=== PATIENT | male | born 1935 | race Caucasian/White ===

== ENCOUNTER 2018-09-25 14:43 | Inpatient (IN) | payer OTHER ==
[2018-09-25 15:14] VITALS: BMI 32.3
--- NOTE | 2018-09-25 17:28 | PDOC ---
History of Present Illness - General Chief Complaint: Syncope/Near Syncope Stated Complaint: FALL History Source: Patient Exam Limitations: No Limitations - History of Present Illness Initial Comments: 09/25/18 17:23 83-year-old male history of hypertension hyperlipidemia previous stroke here today complaining of a syncopal event. Patient states that he was going to his assisted living for intake today had just stood up after signing intake papers when he subsequently fainted fell backward hitting head. Is uncertain what happened exactly. Denies any precipitating chest pain or palpitations has been feeling lightheaded with standing frequently over the last few weeks. Denies vertigo like sensation no focal weakness no changed her speech is currently at his baseline patient does take a baby aspirin daily Medications include aspirin 81, metformin 500 mg daily, Toprol 50 mg daily, Lexapro 5 mg started 1 week ago, simvastatin 40 mg daily, PCP Dr. Luna [phone] in [place]. NIH Stroke Scale - Last Known Well Date/Time & Onset Date Last Known Well: 09/25/18 Time Last Known Well: 14:00 - Initial Evaluation Level of consciousness: Alert Ask patient the month and their age: Answers both correctly Ask patient to open & close eyes; make fist and let go: Obeys both correctly Best gaze (horizontal eye movement): Normal Visual field testing: No visual field loss Facial paresis (Show teeth/raise eyebrows/close eyes tight): Normal symmetrical movement Motor Function: Left Arm: Normal Motor Function: Right Arm: Normal (extends arm 90 (or 45) degrees for 10 seconds without drift Motor Function: Left Leg: Normal (extends leg 30 degrees for 5 seconds without drift) Motor Function: Right Leg: Drift (old) Limb Ataxia: No ataxia Sensory(Use pinprick test arms,legs,trunk,face/side to side): Normal Best language (Describe picture, name items, read sentences): No Aphasia Dysarthria (read several words): Normal articulation Extinction and Inattention: No abnormality - Total Score NIH Stroke Scale Score: 1 Past History - Past Medical History Allergies/Adverse Reactions: Allergies Allergy/AdvReac Type Severity Reaction Status Date / Time No Known Allergies Allergy Verified 09/25/18 15:14 Home Medications: Ambulatory Orders Aspirin 81 mg PO DAILY 09/25/18 Escitalopram Oxalate [Lexapro -] 5 mg PO DAILY 09/25/18 Pantoprazole Sodium [Protonix] 40 mg PO DAILY 09/25/18 Ramipril [Altace] 2.5 mg PO DAILY 09/25/18 Rosuvastatin Calcium [Crestor] 20 mg PO DAILY 09/25/18 metFORMIN XR [Glucophage *Xr* -] 500 mg PO HS 09/25/18 COPD: No Diabetes: Yes HTN: Yes Hypercholesterolemia: Yes - Suicide/Smoking/Psychosocial Hx Smoking History: Former smoker Have you smoked in the past 12 months: No Information on smoking cessation initiated: No Hx Alcohol Use: No Drug/Substance Use Hx: No Review of Systems - Review of Systems Constitutional: No: Chills, Diaphoresis, Fever HEENTM: No: Eye Pain Respiratory: No: Orthopnea, Shortness of Breath Cardiac (ROS): Yes: Lightheadedness. No: Chest Pain, Edema ABD/GI: No: Abdominal Distended, Nausea, Vomiting : No: Burning, Dysuria, Discharge Musculoskeletal: No: Back Pain, Joint Pain Integumentary: No: Bruising Neurological: Yes: Dizziness. No: Headache Psychiatric: Yes: Depression All Other Systems: Reviewed and Negative *Physical Exam - Vital Signs Last Vital Signs Temp Pulse Resp BP Pulse Ox 98.9 F 55 L 18 105/56 L 96 09/25/18 15:12 09/25/18 15:12 09/25/18 15:12 09/25/18 15:12 09/25/18 15:12 - Physical Exam Comments: 09/25/18 17:25 Awake alert head is atraumatic. no midline spinal tenderness. no acute distress lungs are clear bilaterally heart is regular without any murmurs rubs or gallops abdomen is soft obese nontender. There is noted a infraumbilical prior hernia scar no palpable hernia extremities are warm and well-perfused no pitting edema. Patient's strength is noted for mild 4+ out of 5 weakness of the right upper and right lower extremity (old) This is only appreciated 1 testing strength bilaterally. All else is 5 out of 5 speech is clear cranial nerves II through XII is intact. skin warm and dry. Moderate Sedation - Procedure Monitoring Vital Signs: Procedure Monitoring Vital Signs Temperature 98.9 F 09/25/18 15:12 Pulse Rate 55 L 09/25/18 15:12 Respiratory Rate 18 09/25/18 15:12 Blood Pressure 105/56 L 09/25/18 15:12 O2 Sat by Pulse Oximetry (%) 96 09/25/18 15:12 Heart Score/ECG Review #1 General ECG Interpretation: Normal Intervals, No acute ischemic changes Compared to previous ECG there are: Other (sinus bradycardia. Q wave III, AVF) #2 General ECG Interpretation: Sinus Rhythm, Normal Rate (60), Normal Intervals, No acute ischemic changes Compared to previous ECG there are: Other (flattened t wave III, q wave II, left axis. no acute change from previous ekg) - Armagh Armagh: Left Armagh Deviation ED Treatment Course - LABORATORY CBC & Chemistry Diagram: 09/25/18 17:33 09/25/18 17:33 - RADIOLOGY Radiology Studies Ordered: Category Date Time Status HEAD CT WITHOUT CONTRAST [CT] Stat CT Scan 09/25/18 16:39 Ordered CHEST X-RAY PORTABLE* [RAD] Stat Radiology 09/25/18 17:22 Ordered Medical Decision Making - Medical Decision Making 09/25/18 17:27 83-year-old male here with a syncopal event differential includes anemia, electrolyte abnormality, dysrhythmia, no acute changes the patient neurological exam plan CT head to rule out intracranial injuries. CBC CMP EKG and chest x- ray. Patient will likely require admission for short term on telemetry to rule out dysrhythmia as a cause for his syncope. 09/25/18 19:03 d/w pt pcp dr Alvarado, . uncertain of any recent echo. however did recently start pt on antidepressant. will admit pt for lightheaded, syncope. noted low bp, consider adjusting medication. ct with chronic infarct left parietal cortical region and age indeterminate thalamic infarct. 09/25/18 19:11 per daughter, pt at baseline. right sided weakness is old from prior cva. d/w dr mcgowan, will admit pt. requested nuerology evaluation. 09/26/18 01:09 cxr unremarkable. pt normal wbc, afebrile. ua negative admitted for syncope. *DC/Admit/Observation/Transfer Diagnosis at time of Disposition: Syncope - Discharge Dispostion Decision to Admit order: Yes - Referrals - Patient Instructions - Post Discharge Activity
[2018-09-25 18:37] LABS: ALBUMIN 3.6 g/dl (3.4-5.0); ALK PHOS 54 U/L (45-117); ANION GAP 6 MMOL/L (8-16); BILIRUBIN,TOTAL 0.4 mg/dL (0.2-1); BLOOD UREA NITROGEN 34 mg/dL (7-18); CALCIUM 8.2 mg/dL (8.5-10.1); CHLORIDE 106 mmol/L (98-107); CO2 28 mmol/L (21-32); CREATININE 1.3 mg/dL (0.55-1.3); GLUCOSE,RANDOM 92 mg/dL (74-106); POTASSIUM 4.3 mmol/L (3.5-5.1); SGOT/AST 18 U/L (15-37); SGPT/ALT 15 U/L (13-61); SODIUM 141 mmol/L (136-145); TOT PROT 6.2 g/dl (6.4-8.2)
[2018-09-25 19:16] LABS: BASO % 0.3 % (0-2.0); EOS % 0.6 % (0-4.5); HEMATOCRIT 35.4 % (35.4-49); HEMOGLOBIN 12.8 GM/dL (11.7-16.9); LYMPH % 16.6 % (8-40); MCH 33.8 pg (25.7-33.7); MCHC 36.1 g/dl (32.0-35.9); MEAN CELL VOLUME 93.5 fl (80-96); MEAN PLT VOLUME 7.6 fl (7.5-11.1); MONO % 8.2 % (3.8-10.2); NEUT % 74.3 % (42.8-82.8); PLATELET COUNT 158 K/MM3 (134-434); RBC 3.79 M/mm3 (4.00-5.60); RDW 13.3 % (11.9-15.9); WHITE BLOOD COUNT 5.8 K/mm3 (4.0-10.0)
[2018-09-25 21:23] LABS: URINE APPEARANCE CLEAR; URINE BILIRUBIN NEGATIVE (<2.0 mg/dL); URINE COLOR YELLOW; URINE GLUCOSE (UA) NEGATIVE (NEGATIVE); URINE KETONE NEGATIVE (NEGATIVE); URINE LEUK ESTERASE NEGATIVE (NEGATIVE); URINE NITRITE NEGATIVE (NEGATIVE); URINE PROTEIN NEGATIVE (NEGATIVE); URINE UROBILINOGEN NEGATIVE mg/dL (0.2-1.0)
[2018-09-26] MEDS: RAMIPRIL 2.5 MG CAPSULE (FP) PO SCH (09:43)
[2018-09-26] MEDS: ESCITALOPRAM OXALATE 10 MG TABLET (FP) PO SCH (09:43)
[2018-09-26] MEDS: ASPIRIN 81 MG CHEWABLE TABLETS PO SCH (09:43)
[2018-09-26] MEDS: PANTOPRAZOLE 40 MG TABLET (FP) PO SCH (09:43)
--- NOTE | 2018-09-26 11:15 | CONSULT ---
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 Examined with his son, Zuleyma and daughter, Tabitha at the bedside. Today he fell backwards striking his head while standing signing papers. He denies dizziness or other prodromal symtoms. He milagros LOC. He and his children report progressive gait dysfunction "ever since his stroke 8 years ago" with his right leg "moving where it wants" despite his mind "telling it otherwise." More recently he has fallen almost weekly especially when first getting out of bed or chair. This can occur with a feeling of lightheaded or not. His family also describes 2 years of progressive cognitive decline with forgetfullness, confusion and more recently talking to himself. PMHX: CVA's x 2 (1 episode of confusion and 1 of LOC), depression, GERD, HTN, HLD, DM Medications: ASA 81, escitalopram, pantoprazole, ramipril, rosuvastatin, metformin. Review of systems is significant for morning stiffness and difficulty "getting moving." He reports more recent history of violent and vivid dreams that he can sometimes "act out." He also reports occasional feeling of presence and reports he can see his son and sometimes "shadows" of animals. Head CT (reviewed): chronic periventricular microvascular changes, chronic lacunar infarct L frontoparietal lobe, small lacunar infarct L thalmus BLANCHE: BP: 140-180s/80-100s without orthostatic changes. No evidence of head trauma, restricted ROM of neck, (-) bruit NEURO EXAM: Mentation/speech: [facility]. August corrected to September. . 2019. TRUMP cannot reverse. 08/08 recall at 3 mins. +Glabella CN II-XII: Slightly masked. EOM's full without nystagmus. Full petersen appreciated. Mild left facial droop Motor: L upward drift. Strength normal. Cogwheeling appreciated with reinforcement R > L. Decreased JAMES R>L. Reflexes brisk and symmetric. Toes downgoing. Rigid tone without tremor. Coordination: No FTN dystaxia, but slowed. Romberg - Sensation: Mildly reduced vibration in feet Coordination: flexed, shuffling. Unsteady with turns and mildly retropulsive. 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 Thank you very much, Tien Gibson MD
--- NOTE | 2018-09-26 11:33 | HP ---
Admitting History and Physical - Primary Care Physician PCP: Vi Leiva - Admission Chief Complaint: syncope History of Present Illness: 83-year-old male history of hypertension hyperlipidemia previous stroke here today complaining of a syncopal event. Patient states that he was going to his assisted living for intake today had just stood up after signing intake papers when he subsequently fainted fell backward hitting head. Is uncertain what happened exactly. Denies any precipitating chest pain or palpitations has been feeling lightheaded with standing frequently over the last few weeks. Denies vertigo like sensation no focal weakness no changed her speech is currently at his baseline patient does take a baby aspirin daily - Past Medical History Cardiovascular: Yes: HTN, Hyperlipdemia - Smoking History Smoking history: Former smoker Have you smoked in the past 12 months: No - Alcohol/Substance Use Hx Alcohol Use: No Home Medications - Allergies Allergies/Adverse Reactions: Allergies Allergy/AdvReac Type Severity Reaction Status Date / Time No Known Allergies Allergy Verified 09/25/18 15:14 - Home Medications Home Medications: Ambulatory Orders Aspirin 81 mg PO DAILY 09/25/18 Escitalopram Oxalate [Lexapro -] 5 mg PO DAILY 09/25/18 Pantoprazole Sodium [Protonix] 40 mg PO DAILY 09/25/18 Ramipril [Altace] 2.5 mg PO DAILY 09/25/18 Rosuvastatin Calcium [Crestor] 20 mg PO DAILY 09/25/18 metFORMIN XR [Glucophage *Xr* -] 500 mg PO HS 09/25/18 Physical Examination Vital Signs: Vital Signs Temperature 98.7 F 09/26/18 11:00 Pulse Rate 63 09/26/18 11:00 Respiratory Rate 18 09/26/18 11:00 Blood Pressure 148/96 09/26/18 11:00 O2 Sat by Pulse Oximetry (%) 97 09/26/18 11:00 Constitutional: Yes: No Distress HENT: Yes: Atraumatic Neck: Yes: Supple Cardiovascular: Yes: Regular Rate and Rhythm Respiratory: Yes: CTA Bilaterally Gastrointestinal: Yes: Normal Bowel Sounds Extremities: Yes: WNL Peripheral Pulses WNL: Yes Neurological: Yes: Alert, Oriented Labs: CBC, BMP 09/25/18 17:33 09/25/18 17:33 Problem List - Problems (1) Syncope Assessment/Plan: resolved tele monitoring neuro and cardiac eval Code(s): R55 - SYNCOPE AND COLLAPSE (2) Hyperlipidemia Assessment/Plan: on meds Code(s): E78.5 - HYPERLIPIDEMIA, UNSPECIFIED Qualifiers: Hyperlipidemia type: pure hypercholesterolemia Qualified Code(s): E78.00 - Pure hypercholesterolemia, unspecified; E78.0 - Pure hypercholesterolemia (3) Type 2 diabetes mellitus Assessment/Plan: on meds monitor bgms Code(s): E11.9 - TYPE 2 DIABETES MELLITUS WITHOUT COMPLICATIONS Qualifiers: Diabetes mellitus terminal superintendent insulin use: without custodial use Diabetes mellitus complication status: with neurologic complications Diabetes mellitus complication detail: with unspecified neuropathy Qualified Code(s): E11.40 - Type 2 diabetes mellitus with diabetic neuropathy, unspecified Assessment/Plan Laboratory Tests 09/25/18 09/25/18 09/25/18 17:33 17:33 17:39 WBC 5.8 RBC 3.79 L Hgb 12.8 Hct 35.4 MCV 93.5 MCH 33.8 H MCHC 36.1 H RDW 13.3 Plt Count 158 MPV 7.6 Absolute Neuts (auto) 4.3 Neutrophils % 74.3 Lymphocytes % 16.6 Monocytes % 8.2 Eosinophils % 0.6 Basophils % 0.3 Nucleated RBC % 0 Sodium 141 Potassium 4.3 Chloride 106 Carbon Dioxide 28 Anion Gap 6 L BUN 34 H Creatinine 1.3 Creat Clearance w eGFR 52.59 Random Glucose 92 Calcium 8.2 L Total Bilirubin 0.4 AST 18 ALT 15 Alkaline Phosphatase 54 Creatine Kinase 144 Creatine Kinase Index CK-MB (CK-2) Troponin I < 0.02 Total Protein 6.2 L Albumin 3.6 Urine Color Yellow Urine Appearance Clear Urine pH 5.0 Ur Specific [place] 1.026 Urine Protein Negative Urine Glucose (UA) Negative Urine Ketones Negative Urine Blood Negative Urine Nitrite Negative Urine Bilirubin Negative Urine Urobilinogen Negative Ur Leukocyte Esterase Negative 09/26/18 01:46 WBC RBC Hgb Hct MCV MCH MCHC RDW Plt Count MPV Absolute Neuts (auto) Neutrophils % Lymphocytes % Monocytes % Eosinophils % Basophils % Nucleated RBC % Sodium Potassium Chloride Carbon Dioxide Anion Gap BUN Creatinine Creat Clearance w eGFR Random Glucose Calcium Total Bilirubin AST ALT Alkaline Phosphatase Creatine Kinase 203 Creatine Kinase Index 0.7 CK-MB (CK-2) 1.6 Troponin I 0.02 Total Protein Albumin Urine Color Urine Appearance Urine pH Ur Specific [place] Urine Protein Urine Glucose (UA) Urine Ketones Urine Blood Urine Nitrite Urine Bilirubin Urine Urobilinogen Ur Leukocyte Esterase Active Medications Generic Name Dose Route Start Last Admin Trade Name Freq PRN Reason Stop Dose Admin Aspirin 81 mg 09/26/18 10:00 09/26/18 09:43 Asa - PO 81 mg DAILY THANH Administration Escitalopram Oxalate 5 mg 09/26/18 10:00 09/26/18 09:43 Lexapro - PO 5 mg DAILY THANH Administration Metformin HCl 500 mg 09/26/18 22:00 Glucophage Xr - PO HS [facility] Pantoprazole Sodium 40 mg 09/26/18 10:00 09/26/18 09:43 Protonix - PO 40 mg DAILY THANH Administration Ramipril 2.5 mg 09/26/18 10:00 09/26/18 09:43 Altace - PO 2.5 mg DAILY THANH Administration Rosuvastatin Calcium 20 mg 09/26/18 22:00 Crestor - PO HS THANH
--- NOTE | 2018-09-26 11:58 | EKG ---
Test Reason : Blood Pressure : / mmHG Vent. Rate : 055 BPM Atrial Rate : 055 BPM P-R Int : 194 ms QRS Dur : 062 ms QT Int : 442 ms P-R-T Axes : 060 -18 -24 degrees QTc Int : 422 ms POOR DATA QUALITY, INTERPRETATION MAY BE ADVERSELY AFFECTED SINUS BRADYCARDIA NONSPECIFIC ST AND T WAVE ABNORMALITY ABNORMAL ECG NO PREVIOUS ECGS AVAILABLE Confirmed by SAMANTHA DRIVER, MOUNA ([id number]) on 09/26/2018 11:58:25 AM Referred By: Confirmed By:MOUNA SINGH MD
--- NOTE | 2018-09-26 11:59 | EKG ---
Test Reason : Blood Pressure : / mmHG Vent. Rate : 060 BPM Atrial Rate : 060 BPM P-R Int : 198 ms QRS Dur : 074 ms QT Int : 426 ms P-R-T Axes : 044 -11 040 degrees QTc Int : 426 ms POOR DATA QUALITY, INTERPRETATION MAY BE ADVERSELY AFFECTED NORMAL SINUS RHYTHM NORMAL ECG WHEN COMPARED WITH ECG OF 25-SEP-2018 15:17, NONSPECIFIC T WAVE ABNORMALITY NO LONGER EVIDENT IN INFERIOR LEADS Confirmed by MOUNA SINGH MD ([id number]) on 09/26/2018 11:58:43 AM Referred By: Confirmed By:MOUNA SINGH MD
--- NOTE | 2018-09-26 12:07 | CON.CARD ---
Consult Consult Specialty:: Cardiology Referred by:: Vi Leiva MD Reason for Consultation:: Syncope - History of Present Illness Chief Complaint: Post mechanical fall History of Present Illness: 83-year-old male history of hypertension, hyperlipidemia, DM, previous stroke here today presents after mechanical fall, denies loss of consciousness. Patient states that he was going to his assisted living for intake today had just stood up after signing intake papers when he subsequently fell backward hitting head without true syncope. He denies prodromal symptoms of chest pain, palpitations, visual scotomas, diaphoresis, nausea or emesis. He does report feeling lightheaded with positional changes over the last few weeks, progressive gait dysfunction with increasing falls. Medications include aspirin 81, metformin 500 mg daily, Toprol 50 mg daily, Lexapro 5 mg started 1 week ago, simvastatin 40 mg daily, PCP Dr. Luna [phone] in [place]. - History Source History Provided By: Patient Limitations to Obtaining History: No Limitations - Alcohol/Substance Use Hx Alcohol Use: No - Smoking History Smoking history: Former smoker Have you smoked in the past 12 months: No Home Medications - Allergies Allergies/Adverse Reactions: Allergies Allergy/AdvReac Type Severity Reaction Status Date / Time No Known Allergies Allergy Verified 09/25/18 15:14 - Home Medications Home Medications: Ambulatory Orders Aspirin 81 mg PO DAILY 09/25/18 Escitalopram Oxalate [Lexapro -] 5 mg PO DAILY 09/25/18 Pantoprazole Sodium [Protonix] 40 mg PO DAILY 09/25/18 Ramipril [Altace] 2.5 mg PO DAILY 09/25/18 Rosuvastatin Calcium [Crestor] 20 mg PO DAILY 09/25/18 metFORMIN XR [Glucophage *Xr* -] 500 mg PO HS 09/25/18 Review of Systems - Review of Systems Neurological: reports: Dizziness, Unsteady Gait Vital Signs: Vital Signs Temperature 98.7 F 09/26/18 11:00 Pulse Rate 63 09/26/18 11:00 Respiratory Rate 18 09/26/18 11:00 Blood Pressure 148/96 09/26/18 11:00 O2 Sat by Pulse Oximetry (%) 97 09/26/18 11:00 Constitutional: Yes: No Distress, Calm Neck: Yes: Supple Respiratory: Yes: Regular, CTA Bilaterally Gastrointestinal: Yes: Normal Bowel Sounds, Soft Cardiovascular: Yes: Regular Rate and Rhythm JVD: No Carotid Bruit: No Heart Sounds: Yes: S1, S2 Edema: No - Other Data Labs, Other Data: CBC, BMP 09/25/18 17:33 09/25/18 17:33 Troponin, BNP 09/25/18 09/26/18 17:33 01:46 Troponin I < 0.02 0.02 Troponin, BNP 09/25/18 09/26/18 17:33 01:46 Troponin I < 0.02 0.02 NSR @ 55 nonspec T wave changes Ejection Fraction %: LVEF > or = 40 % Imaging - Results Chest X-ray: Report Reviewed (NAD) Problem List - Problems (1) Accident due to mechanical fall without injury Code(s): W19.XXXA - UNSPECIFIED FALL, INITIAL ENCOUNTER Qualifiers: Encounter type: initial encounter Qualified Code(s): W19.XXXA - Unspecified fall, initial encounter (2) Gait instability Code(s): R26.81 - UNSTEADINESS ON FEET (3) Hypertensive heart disease Code(s): I11.9 - HYPERTENSIVE HEART DISEASE WITHOUT HEART FAILURE Qualifiers: Heart failure presence: without heart failure Qualified Code(s): I11.9 - Hypertensive heart disease without heart failure (4) Hyperlipidemia Code(s): E78.5 - HYPERLIPIDEMIA, UNSPECIFIED Qualifiers: Hyperlipidemia type: pure hypercholesterolemia Qualified Code(s): E78.00 - Pure hypercholesterolemia, unspecified; E78.0 - Pure hypercholesterolemia (5) Parkinsonian features Code(s): R25.9 - UNSPECIFIED ABNORMAL INVOLUNTARY MOVEMENTS (6) Cerebrovascular disease Code(s): I67.9 - CEREBROVASCULAR DISEASE, UNSPECIFIED (7) Type 2 diabetes mellitus Code(s): E11.9 - TYPE 2 DIABETES MELLITUS WITHOUT COMPLICATIONS Qualifiers: Diabetes mellitus management development specialist insulin use: without correction use Diabetes mellitus complication status: with neurologic complications Diabetes mellitus complication detail: with unspecified neuropathy Qualified Code(s): E11.40 - Type 2 diabetes mellitus with diabetic neuropathy, unspecified Assessment/Plan 09/26/[address] (reviewed): chronic periventricular microvascular changes, chronic lacunar infarct L frontoparietal lobe, small lacunar infarct L thalmus 1. s/p mechanical fall, gait instability, denies true syncope suspect Parkinson' s disease 2. Type 2 DM with neuropathy 3. Cerebrovascular disease 4. Hypertensive heart disease 5. Hyperlipidemia P:1. Check orthostatic VS, horseradish grinder, check TSH, lipid panel, Ha1c, echocardiogram 2. Continue ASA 81 qd, Altace 2.5 qd, Crestor 20 qd 3. F/u brain MRI, carotid US already ordered 4. PT for gait and balance, may require trial of L-Dopa, continue Lexapro with caution 5. Thank you for consultative opportunity
[2018-09-26] MEDS: ROSUVASTATIN CA 20 MG TABLET (FP) PO SCH (21:14)
[2018-09-27 04:21] LABS: SERUM IRON SATURATION 50 % (15-55); TOTAL IRON BINDING CAPACITY 229 ug/dL (250-450); UIBC 114 ug/dL (111-343)
[2018-09-27] MEDS ORDERED: PT OWN MED DRAWER 7, Y5N ONE (06:55)
[2018-09-27] MEDS: RAMIPRIL 2.5 MG CAPSULE (FP) PO SCH (10:15)
[2018-09-27] MEDS: PANTOPRAZOLE 40 MG TABLET (FP) PO SCH (10:15)
[2018-09-27] MEDS: ESCITALOPRAM OXALATE 10 MG TABLET (FP) PO SCH (10:15)
[2018-09-27] MEDS: ASPIRIN 81 MG CHEWABLE TABLETS PO SCH (10:22)
--- NOTE | 2018-09-27 10:42 | PN ---
Progress Note, Physician History of Present Illness: Ambulates to bathroom without near or true syncope, slow gait. PCP Dr. Luna [phone] in [place]. - Current Medication List Current Medications: Active Medications Aspirin (Asa -) 81 mg PO DAILY [facility] Last Admin: 09/27/18 10:22 Dose: 81 mg Carbidopa/Levodopa (Sinemet *Cr* 25/100 -) 1 combo PO TIDCM [facility] Last Admin: 09/27/18 06:54 Dose: 1 combo Escitalopram Oxalate (Lexapro -) 5 mg PO DAILY [facility] Last Admin: 09/27/18 10:15 Dose: 5 mg Metformin HCl (Glucophage Xr -) 500 mg PO [facility] Last Admin: 09/26/18 21:14 Dose: 500 mg Pantoprazole Sodium (Protonix -) 40 mg PO DAILY [facility] Last Admin: 09/27/18 10:15 Dose: 40 mg Ramipril (Altace -) 2.5 mg PO DAILY [facility] Last Admin: 09/27/18 10:15 Dose: 2.5 mg Rosuvastatin Calcium (Crestor -) 20 mg PO [facility] Last Admin: 09/26/18 21:14 Dose: 20 mg - Objective Vital Signs: Vital Signs Temperature 97.8 F 09/27/18 08:50 Pulse Rate 57 L 09/27/18 08:50 Respiratory Rate 20 09/27/18 09:00 Blood Pressure 157/87 09/27/18 08:50 O2 Sat by Pulse Oximetry (%) 95 09/27/18 09:00 Constitutional: Yes: No Distress, Calm Neck: Yes: Supple Cardiovascular: Yes: Regular Rate and Rhythm Respiratory: Yes: Regular, CTA Bilaterally Gastrointestinal: Yes: Normal Bowel Sounds, Soft Edema: No Labs: CBC, BMP 09/25/18 17:33 09/25/18 17:33 - ....Imaging EKG: Report Reviewed (Tele: SB 40-50s) Problem List - Problems (1) Accident due to mechanical fall without injury Code(s): W19.XXXA - UNSPECIFIED FALL, INITIAL ENCOUNTER Qualifiers: Encounter type: initial encounter Qualified Code(s): W19.XXXA - Unspecified fall, initial encounter (2) Gait instability Code(s): R26.81 - UNSTEADINESS ON FEET (3) Hypertensive heart disease Code(s): I11.9 - HYPERTENSIVE HEART DISEASE WITHOUT HEART FAILURE Qualifiers: Heart failure presence: without heart failure Qualified Code(s): I11.9 - Hypertensive heart disease without heart failure (4) Hyperlipidemia Code(s): E78.5 - HYPERLIPIDEMIA, UNSPECIFIED Qualifiers: Hyperlipidemia type: pure hypercholesterolemia Qualified Code(s): E78.00 - Pure hypercholesterolemia, unspecified; E78.0 - Pure hypercholesterolemia (5) Parkinsonian features Code(s): R25.9 - UNSPECIFIED ABNORMAL INVOLUNTARY MOVEMENTS (6) Cerebrovascular disease Code(s): I67.9 - CEREBROVASCULAR DISEASE, UNSPECIFIED (7) Type 2 diabetes mellitus Code(s): E11.9 - TYPE 2 DIABETES MELLITUS WITHOUT COMPLICATIONS Qualifiers: Diabetes mellitus senior care insulin use: without senior care use Diabetes mellitus complication status: with neurologic complications Diabetes mellitus complication detail: with unspecified neuropathy Qualified Code(s): E11.40 - Type 2 diabetes mellitus with diabetic neuropathy, unspecified Assessment/Plan 09/26/[address] (reviewed): chronic periventricular microvascular changes, chronic lacunar infarct L frontoparietal lobe, small lacunar infarct L thalmus 1. s/p mechanical fall, gait instability, denies true syncope suspect Parkinson' s disease 2. Type 2 DM with neuropathy 3. Cerebrovascular disease 4. Hypertensive heart disease 5. Hyperlipidemia P:1. Check orthostatic VS, monitoring specialist, check echocardiogram 2. Continue ASA 81 qd, Altace 2.5 qd, Crestor 20 qd 3. F/u brain MRI. Carotid US neg for stenosis 4. PT for gait and balance, trial of L-Dopa, continue Lexapro with caution
--- NOTE | 2018-09-27 13:07 | PN ---
Progress Note, Physician History of Present Illness: stable - Current Medication List Current Medications: Active Medications Aspirin (Asa -) 81 mg PO DAILY [facility] Last Admin: 09/27/18 10:22 Dose: 81 mg Carbidopa/Levodopa (Sinemet *Cr* 25/100 -) 1 combo PO TIDCM [facility] Last Admin: 09/27/18 12:48 Dose: 1 combo Escitalopram Oxalate (Lexapro -) 5 mg PO DAILY [facility] Last Admin: 09/27/18 10:15 Dose: 5 mg Metformin HCl (Glucophage Xr -) 500 mg PO [facility] Last Admin: 09/26/18 21:14 Dose: 500 mg Pantoprazole Sodium (Protonix -) 40 mg PO DAILY [facility] Last Admin: 09/27/18 10:15 Dose: 40 mg Ramipril (Altace -) 2.5 mg PO DAILY [facility] Last Admin: 09/27/18 10:15 Dose: 2.5 mg Rosuvastatin Calcium (Crestor -) 20 mg PO [facility] Last Admin: 09/26/18 21:14 Dose: 20 mg - Objective Vital Signs: Vital Signs Temperature 97.8 F 09/27/18 08:50 Pulse Rate 57 L 09/27/18 08:50 Respiratory Rate 20 09/27/18 09:00 Blood Pressure 157/87 09/27/18 08:50 O2 Sat by Pulse Oximetry (%) 95 09/27/18 09:00 Constitutional: Yes: Calm HENT: Yes: Atraumatic Neck: Yes: Supple Cardiovascular: Yes: Regular Rate and Rhythm Respiratory: Yes: CTA Bilaterally Gastrointestinal: Yes: Normal Bowel Sounds Extremities: Yes: WNL Edema: No Peripheral Pulses WNL: Yes Neurological: Yes: Alert Labs: CBC, BMP 09/25/18 17:33 09/25/18 17:33 Problem List - Problems (1) Syncope Assessment/Plan: resolved tele monitoring neuro and cardiac eval mri pending Code(s): R55 - SYNCOPE AND COLLAPSE (2) Hyperlipidemia Assessment/Plan: on meds Code(s): E78.5 - HYPERLIPIDEMIA, UNSPECIFIED Qualifiers: Hyperlipidemia type: pure hypercholesterolemia Qualified Code(s): E78.00 - Pure hypercholesterolemia, unspecified; E78.0 - Pure hypercholesterolemia (3) Type 2 diabetes mellitus Assessment/Plan: on meds monitor bgms Code(s): E11.9 - TYPE 2 DIABETES MELLITUS WITHOUT COMPLICATIONS Qualifiers: Diabetes mellitus rental car deliverer insulin use: without shelter use Diabetes mellitus complication status: with neurologic complications Diabetes mellitus complication detail: with unspecified neuropathy Qualified Code(s): E11.40 - Type 2 diabetes mellitus with diabetic neuropathy, unspecified Assessment/Plan awaiting MRI
[2018-09-27] MEDS ORDERED: LORazepam 1 MG TABLET PO ONE (20:15)
[2018-09-27] MEDS: ROSUVASTATIN CA 20 MG TABLET (FP) PO SCH (21:44)
[2018-09-28] MEDS ORDERED: PT OWN MED DRAWER 7, Y5N ONE (10:07)
[2018-09-28] MEDS: ESCITALOPRAM OXALATE 10 MG TABLET (FP) PO SCH (10:31)
[2018-09-28] MEDS: ASPIRIN 81 MG CHEWABLE TABLETS PO SCH (10:32)
[2018-09-28] MEDS: PANTOPRAZOLE 40 MG TABLET (FP) PO SCH (10:32)
[2018-09-28] MEDS: RAMIPRIL 2.5 MG CAPSULE (FP) PO SCH (10:32)
--- NOTE | 2018-09-28 11:06 | PN ---
Progress Note, Physician Chief Complaint: Events noted Not in distress History of Present Illness: Patient was seen and examined. Awake and alert. Chart was reviewed Denies chest pain, SOB or palpitations - Current Medication List Current Medications: Active Medications Aspirin (Asa -) 81 mg PO DAILY [facility] Last Admin: 09/28/18 10:32 Dose: 81 mg Carbidopa/Levodopa (Sinemet *Cr* 25/100 -) 1 combo PO TIDCM [facility] Last Admin: 09/28/18 10:32 Dose: 1 combo Escitalopram Oxalate (Lexapro -) 5 mg PO DAILY [facility] Last Admin: 09/28/18 10:31 Dose: 5 mg Metformin HCl (Glucophage Xr -) 500 mg PO [facility] Last Admin: 09/27/18 21:44 Dose: 500 mg Pantoprazole Sodium (Protonix -) 40 mg PO DAILY [facility] Last Admin: 09/28/18 10:32 Dose: 40 mg Ramipril (Altace -) 2.5 mg PO DAILY [facility] Last Admin: 09/28/18 10:32 Dose: 2.5 mg Rosuvastatin Calcium (Crestor -) 20 mg PO [facility] Last Admin: 09/27/18 21:44 Dose: 20 mg - Objective Vital Signs: Vital Signs Temperature 97.5 F L 09/28/18 05:40 Pulse Rate 56 L 09/28/18 05:40 Respiratory Rate 20 09/28/18 05:40 Blood Pressure 133/70 09/28/18 05:40 O2 Sat by Pulse Oximetry (%) 95 09/28/18 00:46 Eyes: Yes: PERRL HENT: Yes: Atraumatic Neck: Yes: Supple Cardiovascular: Yes: Regular Rate and Rhythm, S1, S2 Respiratory: Yes: CTA Bilaterally Gastrointestinal: Yes: Normal Bowel Sounds, Soft. No: Tenderness Edema: No Additional Findings/Remarks: - Review of Systems Constitutional: denies: Chills, Fever Cardiovascular: denies: Chest Pain, Palpitations, Shortness of Breath Respiratory: denies: Cough, Hemoptysis, Orthopnea, PND, SOB, SOB on Exertion Gastrointestinal: denies: Abdominal Pain, Constipation, Diarrhea, Melena, Nausea , Rectal Bleeding, Vomiting Musculoskeletal: denies: Joint Pain Neurological: denies: Dizziness, Headache, Seizure, Syncope Labs: CBC, BMP 09/25/18 17:33 09/25/18 17:33 Problem List - Problems (1) Accident due to mechanical fall without injury Code(s): W19.XXXA - UNSPECIFIED FALL, INITIAL ENCOUNTER Qualifiers: Encounter type: initial encounter Qualified Code(s): W19.XXXA - Unspecified fall, initial encounter (2) Cerebrovascular disease Code(s): I67.9 - CEREBROVASCULAR DISEASE, UNSPECIFIED (3) Gait instability Code(s): R26.81 - UNSTEADINESS ON FEET (4) Hyperlipidemia Code(s): E78.5 - HYPERLIPIDEMIA, UNSPECIFIED Qualifiers: Hyperlipidemia type: pure hypercholesterolemia Qualified Code(s): E78.00 - Pure hypercholesterolemia, unspecified; E78.0 - Pure hypercholesterolemia (5) Hypertensive heart disease Code(s): I11.9 - HYPERTENSIVE HEART DISEASE WITHOUT HEART FAILURE Qualifiers: Heart failure presence: without heart failure Qualified Code(s): I11.9 - Hypertensive heart disease without heart failure (6) Parkinsonian features Code(s): R25.9 - UNSPECIFIED ABNORMAL INVOLUNTARY MOVEMENTS (7) Type 2 diabetes mellitus Code(s): E11.9 - TYPE 2 DIABETES MELLITUS WITHOUT COMPLICATIONS Qualifiers: Diabetes mellitus usp insulin use: without land acquisition analyst use Diabetes mellitus complication status: with neurologic complications Diabetes mellitus complication detail: with unspecified neuropathy Qualified Code(s): E11.40 - Type 2 diabetes mellitus with diabetic neuropathy, unspecified Assessment/Plan 1. Post mechanical fall, gait instability, denies true syncope and suspect Parkinson's disease 2. Type 2 DM with neuropathy 3. Cerebrovascular disease 4. Hypertensive heart disease 5. Hyperlipidemia PLAN: 1. Check orthostasis. 2. Echocardiography reviewed (normal LV systolic function, mild MR, TR and AR) 3. Continue telemetry monitoring 4. Brain MRI report pending 5. Continue ASA 81 mg QD, Altace 2.5 mg QD and Crestor 20 mg QHS 6. PT for gait and balance, trial of L-Dopa, continue Lexapro with caution Further plans are to follow Chinmay Narvaez MD
--- NOTE | 2018-09-28 18:39 | PN ---
Progress Note, Physician History of Present Illness: stable - Current Medication List Current Medications: Active Medications Aspirin (Asa -) 81 mg PO DAILY [facility] Last Admin: 09/28/18 10:32 Dose: 81 mg Carbidopa/Levodopa (Sinemet *Cr* 25/100 -) 1 combo PO TIDCM [facility] Last Admin: 09/28/18 16:46 Dose: 1 combo Escitalopram Oxalate (Lexapro -) 5 mg PO DAILY [facility] Last Admin: 09/28/18 10:31 Dose: 5 mg Metformin HCl (Glucophage Xr -) 500 mg PO [facility] Last Admin: 09/27/18 21:44 Dose: 500 mg Pantoprazole Sodium (Protonix -) 40 mg PO DAILY [facility] Last Admin: 09/28/18 10:32 Dose: 40 mg Ramipril (Altace -) 2.5 mg PO DAILY [facility] Last Admin: 09/28/18 10:32 Dose: 2.5 mg Rosuvastatin Calcium (Crestor -) 20 mg PO [facility] Last Admin: 09/27/18 21:44 Dose: 20 mg - Objective Vital Signs: Vital Signs Temperature 98.2 F 09/28/18 15:07 Pulse Rate 54 L 09/28/18 15:07 Respiratory Rate 20 09/28/18 18:00 Blood Pressure 112/57 L 09/28/18 15:07 O2 Sat by Pulse Oximetry (%) 96 09/28/18 18:00 Constitutional: Yes: No Distress HENT: Yes: Atraumatic Neck: Yes: Supple Cardiovascular: Yes: Regular Rate and Rhythm Respiratory: Yes: CTA Bilaterally Gastrointestinal: Yes: Normal Bowel Sounds Extremities: Yes: WNL Edema: No Peripheral Pulses WNL: Yes Neurological: Yes: Alert Labs: CBC, BMP 09/25/18 17:33 09/25/18 17:33 Problem List - Problems (1) Syncope Assessment/Plan: resolved tele monitoring neuro and cardiac eval mri report pending Code(s): R55 - SYNCOPE AND COLLAPSE (2) Hyperlipidemia Assessment/Plan: on meds Code(s): E78.5 - HYPERLIPIDEMIA, UNSPECIFIED Qualifiers: Hyperlipidemia type: pure hypercholesterolemia Qualified Code(s): E78.00 - Pure hypercholesterolemia, unspecified; E78.0 - Pure hypercholesterolemia (3) Type 2 diabetes mellitus Assessment/Plan: on meds monitor bgms Code(s): E11.9 - TYPE 2 DIABETES MELLITUS WITHOUT COMPLICATIONS Qualifiers: Diabetes mellitus shelter insulin use: without ferry terminal supervisor use Diabetes mellitus complication status: with neurologic complications Diabetes mellitus complication detail: with unspecified neuropathy Qualified Code(s): E11.40 - Type 2 diabetes mellitus with diabetic neuropathy, unspecified
--- NOTE | 2018-09-28 19:23 | PN ---
Progress Note (short form) - Note Progress Note: NEUROLOGY FOLLOW-UP: Events reviewed and discussed with Dr. Leiva. Incontinent of urine today but UA unremarkable. On Sinemet CR 25/100 TID today. Tolerating well. Denies GI upset, dizziness or hallucinations. MRI of brain (reviewed): Moderately severe, diffuse atrophy, ex vacuo ventricular enlargement and severe, diffuse, microvascular changes with multiple Basal Ganglia and thalamic lacunes and confluent, periventricular, white matter changes. B12, TSH, RPR are normal or negative. EXAM: Patient remains confused. [facility]. October 2012. Jere. Recalls 1 of 3. Cogwheel rigidity is improved Pt ambulates independently with less retropulsion and improved stride length and stabilty. 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 Thank you very much, Tien Gibson MD
[2018-09-28] MEDS: ROSUVASTATIN CA 20 MG TABLET (FP) PO SCH (23:00)
[2018-09-29 07:49] LABS: BASO % 0.8 % (0-2.0); EOS % 2.4 % (0-4.5); HEMATOCRIT 35.7 % (35.4-49); HEMOGLOBIN 12.8 GM/dL (11.7-16.9); LYMPH % 28.2 % (8-40); MCH 32.7 pg (25.7-33.7); MCHC 35.8 g/dl (32.0-35.9); MEAN CELL VOLUME 91.4 fl (80-96); MEAN PLT VOLUME 7.6 fl (7.5-11.1); MONO % 11.5 % (3.8-10.2); NEUT % 57.1 % (42.8-82.8); PLATELET COUNT 155 K/MM3 (134-434); RDW 12.9 % (11.9-15.9); WHITE BLOOD COUNT 3.4 K/mm3 (4.0-10.0)
[2018-09-29 08:15] LABS: ALBUMIN 3.5 g/dl (3.4-5.0); ALK PHOS 59 U/L (45-117); ANION GAP 5 MMOL/L (8-16); BILIRUBIN,TOTAL 0.8 mg/dL (0.2-1); BLOOD UREA NITROGEN 20 mg/dL (7-18); CALCIUM 8.4 mg/dL (8.5-10.1); CHLORIDE 102 mmol/L (98-107); CO2 30 mmol/L (21-32); GLUCOSE,RANDOM 72 mg/dL (74-106); POTASSIUM 3.8 mmol/L (3.5-5.1); SGOT/AST 18 U/L (15-37); SGPT/ALT 10 U/L (13-61); SODIUM 137 mmol/L (136-145); TOT PROT 6.2 g/dl (6.4-8.2)
[2018-09-29] MEDS ORDERED: PT OWN MED DRAWER 7, Y5N ONE (08:44)
[2018-09-29] MEDS: PANTOPRAZOLE 40 MG TABLET (FP) PO SCH (09:01)
[2018-09-29] MEDS: RAMIPRIL 2.5 MG CAPSULE (FP) PO SCH (09:02)
[2018-09-29] MEDS: ASPIRIN 81 MG CHEWABLE TABLETS PO SCH (09:02)
[2018-09-29] MEDS: ESCITALOPRAM OXALATE 10 MG TABLET (FP) PO SCH (09:02)
--- NOTE | 2018-09-29 09:50 | PN ---
Progress Note, Physician Chief Complaint: Events noted Not in distress History of Present Illness: Patient was seen and examined. Awake and alert. Chart was reviewed Denies chest pain, SOB or palpitations - Current Medication List Current Medications: Active Medications Aspirin (Asa -) 81 mg PO DAILY [facility] Last Admin: 09/29/18 09:02 Dose: 81 mg Carbidopa/Levodopa (Sinemet *Cr* 25/100 -) 1 combo PO TIDCM [facility] Last Admin: 09/29/18 08:59 Dose: 1 combo Escitalopram Oxalate (Lexapro -) 5 mg PO DAILY [facility] Last Admin: 09/29/18 09:02 Dose: 5 mg Metformin HCl (Glucophage Xr -) 500 mg PO [facility] Last Admin: 09/28/18 23:00 Dose: 500 mg Pantoprazole Sodium (Protonix -) 40 mg PO DAILY [facility] Last Admin: 09/29/18 09:01 Dose: 40 mg Ramipril (Altace -) 2.5 mg PO DAILY [facility] Last Admin: 09/29/18 09:02 Dose: 2.5 mg Rosuvastatin Calcium (Crestor -) 20 mg PO [facility] Last Admin: 09/28/18 23:00 Dose: 20 mg - Objective Vital Signs: Vital Signs Temperature 97.5 F L 09/29/18 06:00 Pulse Rate 52 L 09/29/18 06:00 Respiratory Rate 15 09/29/18 06:00 Blood Pressure 130/61 09/29/18 06:00 O2 Sat by Pulse Oximetry (%) 100 09/28/18 21:00 HENT: Yes: Atraumatic Neck: Yes: Supple Cardiovascular: Yes: Regular Rate and Rhythm, S1, S2 Respiratory: Yes: CTA Bilaterally Gastrointestinal: Yes: Normal Bowel Sounds, Soft. No: Tenderness Edema: No Additional Findings/Remarks: - Review of Systems Constitutional: denies: Chills, Fever Cardiovascular: denies: Chest Pain, Palpitations, Shortness of Breath Respiratory: denies: Cough, Hemoptysis, Orthopnea, PND, SOB, SOB on Exertion Gastrointestinal: denies: Abdominal Pain, Constipation, Diarrhea, Melena, Nausea , Rectal Bleeding, Vomiting Musculoskeletal: denies: Joint Pain Neurological: denies: Dizziness, Headache, Seizure, Syncope Labs: CBC, BMP 09/29/18 06:00 09/29/18 06:00 Problem List - Problems (1) Accident due to mechanical fall without injury Code(s): W19.XXXA - UNSPECIFIED FALL, INITIAL ENCOUNTER Qualifiers: Encounter type: initial encounter Qualified Code(s): W19.XXXA - Unspecified fall, initial encounter (2) Cerebrovascular disease Code(s): I67.9 - CEREBROVASCULAR DISEASE, UNSPECIFIED (3) Gait instability Code(s): R26.81 - UNSTEADINESS ON FEET (4) Hyperlipidemia Code(s): E78.5 - HYPERLIPIDEMIA, UNSPECIFIED Qualifiers: Hyperlipidemia type: pure hypercholesterolemia Qualified Code(s): E78.00 - Pure hypercholesterolemia, unspecified; E78.0 - Pure hypercholesterolemia (5) Hypertensive heart disease Code(s): I11.9 - HYPERTENSIVE HEART DISEASE WITHOUT HEART FAILURE Qualifiers: Heart failure presence: without heart failure Qualified Code(s): I11.9 - Hypertensive heart disease without heart failure (6) Parkinsonian features Code(s): R25.9 - UNSPECIFIED ABNORMAL INVOLUNTARY MOVEMENTS (7) Type 2 diabetes mellitus Code(s): E11.9 - TYPE 2 DIABETES MELLITUS WITHOUT COMPLICATIONS Qualifiers: Diabetes mellitus acura sales consultant insulin use: without acura sales consultant use Diabetes mellitus complication status: with neurologic complications Diabetes mellitus complication detail: with unspecified neuropathy Qualified Code(s): E11.40 - Type 2 diabetes mellitus with diabetic neuropathy, unspecified Assessment/Plan 1. Post mechanical fall, gait instability, denies true syncope and suspect Parkinson's disease 2. Type 2 DM with neuropathy 3. Cerebrovascular disease 4. Hypertensive heart disease 5. Hyperlipidemia PLAN: 1. Check orthostasis 2. Continue telemetry monitoring 3. Brain MRI report pending 4. Continue ASA 81 mg QD, Altace 2.5 mg QD and Crestor 20 mg QHS 5. PT for gait and balance, trial of L-Dopa, continue Lexapro with caution Further plans are to follow Chinmay Narvaez MD
--- NOTE | 2018-09-29 18:23 | PN ---
Progress Note, Physician History of Present Illness: stable - Current Medication List Current Medications: Active Medications Aspirin (Asa -) 81 mg PO DAILY [facility] Last Admin: 09/29/18 09:02 Dose: 81 mg Carbidopa/Levodopa (Sinemet *Cr* 25/100 -) 1 combo PO TIDCM [facility] Last Admin: 09/29/18 17:57 Dose: 1 combo Escitalopram Oxalate (Lexapro -) 5 mg PO DAILY [facility] Last Admin: 09/29/18 09:02 Dose: 5 mg Metformin HCl (Glucophage Xr -) 500 mg PO [facility] Last Admin: 09/28/18 23:00 Dose: 500 mg Pantoprazole Sodium (Protonix -) 40 mg PO DAILY [facility] Last Admin: 09/29/18 09:01 Dose: 40 mg Ramipril (Altace -) 2.5 mg PO DAILY [facility] Last Admin: 09/29/18 09:02 Dose: 2.5 mg Rosuvastatin Calcium (Crestor -) 20 mg PO [facility] Last Admin: 09/28/18 23:00 Dose: 20 mg - Objective Vital Signs: Vital Signs Temperature 98.2 F 09/29/18 14:00 Pulse Rate 52 L 09/29/18 14:00 Respiratory Rate 16 09/29/18 14:00 Blood Pressure 136/69 09/29/18 14:00 O2 Sat by Pulse Oximetry (%) 100 09/29/18 10:00 Constitutional: Yes: No Distress HENT: Yes: Atraumatic Neck: Yes: Supple Cardiovascular: Yes: Regular Rate and Rhythm Respiratory: Yes: CTA Bilaterally Gastrointestinal: Yes: Normal Bowel Sounds Extremities: Yes: WNL Edema: No Peripheral Pulses WNL: Yes Neurological: Yes: Alert Labs: CBC, BMP 09/29/18 06:00 09/29/18 06:00 Problem List - Problems (1) Syncope Assessment/Plan: resolved tele monitoring neuro and cardiac eval mri reviewed by neuro Code(s): R55 - SYNCOPE AND COLLAPSE (2) Hyperlipidemia Assessment/Plan: on meds Code(s): E78.5 - HYPERLIPIDEMIA, UNSPECIFIED Qualifiers: Hyperlipidemia type: pure hypercholesterolemia Qualified Code(s): E78.00 - Pure hypercholesterolemia, unspecified; E78.0 - Pure hypercholesterolemia (3) Type 2 diabetes mellitus Assessment/Plan: on meds monitor bgms Code(s): E11.9 - TYPE 2 DIABETES MELLITUS WITHOUT COMPLICATIONS Qualifiers: Diabetes mellitus termite inspector insulin use: without usp use Diabetes mellitus complication status: with neurologic complications Diabetes mellitus complication detail: with unspecified neuropathy Qualified Code(s): E11.40 - Type 2 diabetes mellitus with diabetic neuropathy, unspecified (4) Parkinsonian features Assessment/Plan: on sinemet Code(s): R25.9 - UNSPECIFIED ABNORMAL INVOLUNTARY MOVEMENTS
--- NOTE | 2018-09-29 18:24 | DS ---
Physical Examination Vital Signs: Vital Signs Temperature 98.2 F 09/29/18 14:00 Pulse Rate 52 L 09/29/18 14:00 Respiratory Rate 16 09/29/18 14:00 Blood Pressure 136/69 09/29/18 14:00 O2 Sat by Pulse Oximetry (%) 100 09/29/18 10:00 Labs: CBC, BMP 09/29/18 06:00 09/29/18 06:00 Discharge Summary Reason For Visit: SYNCOPE Current Active Problems Accident due to mechanical fall without injury (Acute) Cerebrovascular disease (Acute) Gait instability (Acute) Hyperlipidemia (Acute) Hypertensive heart disease (Acute) Parkinsonian features (Acute) Syncope (Acute) Type 2 diabetes mellitus (Acute) - Instructions Referrals: Andrea Wu [Primary Care Provider] - - Home Medications Comprehensive Discharge Medication List: Ambulatory Orders Aspirin 81 mg PO DAILY 09/25/18 Escitalopram Oxalate [Lexapro -] 5 mg PO DAILY 09/25/18 Pantoprazole Sodium [Protonix] 40 mg PO DAILY 09/25/18 Ramipril [Altace] 2.5 mg PO DAILY 09/25/18 Rosuvastatin Calcium [Crestor] 20 mg PO DAILY 09/25/18 metFORMIN XR [Glucophage *Xr* -] 500 mg PO HS 09/25/18 Carbidopa/Levodopa *Cr* 25/100 [Sinemet *Cr* 25/100 -] 1 combo PO TIDCM #90 tablet.er 09/29/18 mo home
[2018-09-29] MEDS: ROSUVASTATIN CA 20 MG TABLET (FP) PO SCH (21:59)
--- NOTE | 2018-09-30 07:14 | ECHO ---
Version: 1 Name: SOUMYA URIBE Exam: Adult Echocardiogram Study Date: 09/27/2018, 11:55 AM Age: 83 Years MMode/2D Measurements & Calculations IVSd: 1.44 cm LVIDs: 2.39 cm LVIDd: 4.3 cm LVPWd: 1.20 cm LAV (MOD-bp): 29.0 ml Ao root diam: 3.1 cm LA dimension: 2.7 cm Doppler Measurements & Calculations MV E max sha: 58.7 cm/sec MV V2 max: 98.8 cm/sec MV A max sha: 101.2 cm/sec MV max P.9 mmHg MV mean P.47 mmHg Med E/e': 10.8 MV E/A: 0.58 Med Peak E' Sha: 5.5 cm/sec Lat E/e': 8.4 Lat Peak E' Sha: 7.0 cm/sec AI P1/2t: 969.6 msec TR max sha: 248.1 cm/sec TR max P.2 mmHg Procedure The study was technically difficult with many images being suboptimal in quality. Left Ventricle Left ventricular systolic function is grossly normal. Ejection Fraction = 50-55%. Right Ventricle The right ventricle is normal in size and function. Atria Normal left and right atrial size and function. Mitral Valve There is mild mitral annular calcification. There is no mitral valve stenosis. There is mild mitral regurgitation. Tricuspid Valve The tricuspid valve is not well visualized, but is grossly normal. There is mild tricuspid regurgita tion. Right ventricular systolic pressure is elevated at 30-40mmHg. Aortic Valve There is mild aortic sclerosis.;. No hemodynamically significant valvular aortic stenosis. Mild aort ic regurgitation. Pulmonic Valve The pulmonic valve is not well seen, but is grossly normal. There is no pulmonic valvular stenosis. Great Vessels The aortic root is normal size. Pericardium/Pleura There is no pericardial effusion. Summary Statements The study was technically difficult with many images being suboptimal in quality. Left ventricular systolic function is grossly normal. There is mild mitral annular calcification. There is mild mitral regurgitation. There is mild tricuspid regurgitation. Right ventricular systolic pressure is elevated at 30-40mmHg. There is mild aortic sclerosis.; Mild aortic regurgitation. There is no pericardial effusion. MD Smith *[place] 09/27/2018, 2:25 PM Ordering Physician: Jose Arndt Referring Physician: AVELINA WEINER Performed By: Sarahy Dang
--- NOTE | 2018-09-30 09:58 | PN ---
Progress Note, Physician Chief Complaint: Events noted Not in distress History of Present Illness: Patient was seen and examined. Awake and alert. Chart was reviewed Denies chest pain, SOB or palpitations - Current Medication List Current Medications: Active Medications Aspirin (Asa -) 81 mg PO DAILY [facility] Last Admin: 09/29/18 09:02 Dose: 81 mg Carbidopa/Levodopa (Sinemet *Cr* 25/100 -) 1 combo PO TIDCM [facility] Last Admin: 09/29/18 17:57 Dose: 1 combo Escitalopram Oxalate (Lexapro -) 5 mg PO DAILY [facility] Last Admin: 09/29/18 09:02 Dose: 5 mg Metformin HCl (Glucophage Xr -) 500 mg PO [facility] Last Admin: 09/29/18 21:59 Dose: 500 mg Pantoprazole Sodium (Protonix -) 40 mg PO DAILY [facility] Last Admin: 09/29/18 09:01 Dose: 40 mg Ramipril (Altace -) 2.5 mg PO DAILY [facility] Last Admin: 09/29/18 09:02 Dose: 2.5 mg Rosuvastatin Calcium (Crestor -) 20 mg PO [facility] Last Admin: 09/29/18 21:59 Dose: 20 mg - Objective Vital Signs: Vital Signs Temperature 98.0 F 09/30/18 06:00 Pulse Rate 66 09/30/18 06:00 Respiratory Rate 18 09/30/18 06:00 Blood Pressure 135/67 09/30/18 06:00 O2 Sat by Pulse Oximetry (%) 100 09/29/18 21:00 Neck: Yes: Supple Cardiovascular: Yes: Regular Rate and Rhythm, S1, S2 Respiratory: Yes: CTA Bilaterally Gastrointestinal: Yes: Normal Bowel Sounds, Soft. No: Tenderness Edema: No Additional Findings/Remarks: - Review of Systems Constitutional: denies: Chills, Fever Cardiovascular: denies: Chest Pain, Palpitations, Shortness of Breath Respiratory: denies: Cough, Hemoptysis, Orthopnea, PND, SOB, SOB on Exertion Gastrointestinal: denies: Abdominal Pain, Constipation, Diarrhea, Melena, Nausea , Rectal Bleeding, Vomiting Musculoskeletal: denies: Joint Pain Neurological: denies: Dizziness, Headache, Seizure, Syncope Labs: CBC, BMP 09/29/18 06:00 09/29/18 06:00 Problem List - Problems (1) Accident due to mechanical fall without injury Code(s): W19.XXXA - UNSPECIFIED FALL, INITIAL ENCOUNTER Qualifiers: Encounter type: initial encounter Qualified Code(s): W19.XXXA - Unspecified fall, initial encounter (2) Cerebrovascular disease Code(s): I67.9 - CEREBROVASCULAR DISEASE, UNSPECIFIED (3) Gait instability Code(s): R26.81 - UNSTEADINESS ON FEET (4) Hyperlipidemia Code(s): E78.5 - HYPERLIPIDEMIA, UNSPECIFIED Qualifiers: Hyperlipidemia type: pure hypercholesterolemia Qualified Code(s): E78.00 - Pure hypercholesterolemia, unspecified; E78.0 - Pure hypercholesterolemia (5) Hypertensive heart disease Code(s): I11.9 - HYPERTENSIVE HEART DISEASE WITHOUT HEART FAILURE Qualifiers: Heart failure presence: without heart failure Qualified Code(s): I11.9 - Hypertensive heart disease without heart failure (6) Parkinsonian features Code(s): R25.9 - UNSPECIFIED ABNORMAL INVOLUNTARY MOVEMENTS (7) Type 2 diabetes mellitus Code(s): E11.9 - TYPE 2 DIABETES MELLITUS WITHOUT COMPLICATIONS Qualifiers: Diabetes mellitus custodial insulin use: without long term care pharmacist use Diabetes mellitus complication status: with neurologic complications Diabetes mellitus complication detail: with unspecified neuropathy Qualified Code(s): E11.40 - Type 2 diabetes mellitus with diabetic neuropathy, unspecified Assessment/Plan 1. Post mechanical fall, gait instability, denies true syncope and suspect Parkinson's disease 2. Type 2 DM with neuropathy 3. Cerebrovascular disease 4. Hypertensive heart disease 5. Hyperlipidemia PLAN: 1. Check orthostasis 2. Continue telemetry monitoring 3. Brain MRI report noted 4. Continue ASA 81 mg QD, Altace 2.5 mg QD and Crestor 20 mg QHS 5. PT for gait and balance, trial of L-Dopa, continue Lexapro with caution Further plans are to follow Chinmay Narvaez MD
[2018-09-30] MEDS ORDERED: PT OWN MED DRAWER 7, Y5N ONE (10:28)
[2018-09-30] MEDS: RAMIPRIL 2.5 MG CAPSULE (FP) PO SCH (10:30)
[2018-09-30] MEDS: ESCITALOPRAM OXALATE 10 MG TABLET (FP) PO SCH (10:30)
[2018-09-30] MEDS: PANTOPRAZOLE 40 MG TABLET (FP) PO SCH (10:30)
[2018-09-30] MEDS: ASPIRIN 81 MG CHEWABLE TABLETS PO SCH (10:46)
[2018-09-30] MEDS: CLOPIDOGREL BISULFATE 75 MG TABLET (FP) PO SCH (10:46)
--- NOTE | 2018-09-30 13:43 | DS ---
Physical Examination Vital Signs: Vital Signs Temperature 98 F 09/30/18 10:00 Pulse Rate 63 09/30/18 10:00 Respiratory Rate 18 09/30/18 10:00 Blood Pressure 148/76 09/30/18 10:00 O2 Sat by Pulse Oximetry (%) 100 09/30/18 09:00 Labs: CBC, BMP 09/29/18 06:00 09/29/18 06:00 Discharge Summary Reason For Visit: SYNCOPE Current Active Problems Accident due to mechanical fall without injury (Acute) Cerebrovascular disease (Acute) Gait instability (Acute) Hyperlipidemia (Acute) Hypertensive heart disease (Acute) Parkinsonian features (Acute) Syncope (Acute) Type 2 diabetes mellitus (Acute) - Instructions Referrals: Andrea Wu [Primary Care Provider] - - Home Medications Comprehensive Discharge Medication List: Ambulatory Orders Aspirin 81 mg PO DAILY 09/25/18 Escitalopram Oxalate [Lexapro -] 5 mg PO DAILY 09/25/18 Pantoprazole Sodium [Protonix] 40 mg PO DAILY 09/25/18 Ramipril [Altace] 2.5 mg PO DAILY 09/25/18 Rosuvastatin Calcium [Crestor] 20 mg PO DAILY 09/25/18 metFORMIN XR [Glucophage *Xr* -] 500 mg PO HS 09/25/18 Carbidopa/Levodopa *Cr* 25/100 [Sinemet *Cr* 25/100 -] 1 combo PO TIDCM #90 tablet.er 09/29/18 dc if cleared by neuro
[2018-09-30] MEDS: SODIUM CHLORIDE 250 ML IV SCH (14:00)
--- NOTE | 2018-09-30 16:57 | PN ---
Progress Note, Physician - Current Medication List Current Medications: Active Medications Aspirin (Asa -) 81 mg PO DAILY [facility] Last Admin: 09/30/18 10:46 Dose: 81 mg Carbidopa/Levodopa (Sinemet *Cr* 100 -) 1 combo PO TIDCM [facility] Last Admin: 09/30/18 16:56 Dose: 1 combo Clopidogrel Bisulfate (Plavix -) 75 mg PO DAILY [facility] Last Admin: 09/30/18 10:46 Dose: 75 mg Escitalopram Oxalate (Lexapro -) 5 mg PO DAILY [facility] Last Admin: 09/30/18 10:30 Dose: 5 mg Sodium Chloride (Normal Saline -) 250 mls @ 250 mls/hr IV ASDIR [facility] Last Admin: 09/30/18 14:00 Dose: 250 mls/hr Metformin HCl (Glucophage Xr -) 500 mg PO HS [facility] Last Admin: 09/29/18 21:59 Dose: 500 mg Pantoprazole Sodium (Protonix -) 40 mg PO DAILY [facility] Last Admin: 09/30/18 10:30 Dose: 40 mg Ramipril (Altace -) 2.5 mg PO DAILY [facility] Last Admin: 09/30/18 10:30 Dose: 2.5 mg Rosuvastatin Calcium (Crestor -) 20 mg PO [facility] Last Admin: 09/29/18 21:59 Dose: 20 mg - Objective Vital Signs: Vital Signs Temperature 97.8 F 09/30/18 15:00 Pulse Rate 50 L 09/30/18 15:00 Respiratory Rate 18 09/30/18 15:00 Blood Pressure 114/60 09/30/18 15:00 O2 Sat by Pulse Oximetry (%) 100 09/30/18 09:00 HENT: Yes: Atraumatic Neck: Yes: Supple Cardiovascular: Yes: Regular Rate and Rhythm Respiratory: Yes: Rhonchi Gastrointestinal: Yes: Normal Bowel Sounds Extremities: Yes: WNL Edema: No Peripheral Pulses WNL: Yes Neurological: Yes: Alert, Oriented Labs: CBC, BMP 09/29/18 06:00 09/29/18 06:00 Problem List - Problems (1) Syncope Assessment/Plan: resolved tele monitoring neuro and cardiac eval mri reviewed by neuro Code(s): R55 - SYNCOPE AND COLLAPSE (2) Hyperlipidemia Assessment/Plan: on meds Code(s): E78.5 - HYPERLIPIDEMIA, UNSPECIFIED Qualifiers: Hyperlipidemia type: pure hypercholesterolemia Qualified Code(s): E78.00 - Pure hypercholesterolemia, unspecified; E78.0 - Pure hypercholesterolemia (3) Type 2 diabetes mellitus Assessment/Plan: on meds monitor bgms Code(s): E11.9 - TYPE 2 DIABETES MELLITUS WITHOUT COMPLICATIONS Qualifiers: Diabetes mellitus parts counterman insulin use: without skilled nursing use Diabetes mellitus complication status: with neurologic complications Diabetes mellitus complication detail: with unspecified neuropathy Qualified Code(s): E11.40 - Type 2 diabetes mellitus with diabetic neuropathy, unspecified
[2018-09-30] MEDS: ROSUVASTATIN CA 20 MG TABLET (FP) PO SCH (21:01)
--- NOTE | 2018-09-30 21:52 | PN ---
Progress Note (short form) - Note Progress Note: NEUROLOGY PROGRESS: Events reviewed. Radiology ammended MRI report to include a "recent" right parietal stroke. This is indeed one of multiple vascular lesions of various age on the image. Right parietal CVA can present with acute confusional state and may have contributed to the Pt's admission. However, the family was clear in their description of 2 years of progressive decline in cognition and gait. Now on Plavix 75 mg qd EXAM: Awake, alert. Remembers my name. [facility]. 2018. Sl dysarthric Full confrontational visual petersen. Right lower facial droop Gag OK Decreased cogwheeling. Decreased JAMES's Areflexic in legs Gait remains improved with better stride length and reduced retropulsion. IMP: Multi-infarct state. OMS (CVA's +/- AD) Parkinsonism- slightly better on low dose L-Dopa. Diabetic peripheral neuropathy SUGGEST: Continue Sinemet CR 25/100 TID @ 7, 12, and 5 D/C on Plavix 75 mg qd for stroke prophylaxis Out patient PT for gait with walker. financial services associate for home health aide (or short term Rehab placement). Neuro f/u as out patient. Thank you very much, Tien Gibson MD
[2018-10-01] MEDS ORDERED: PT OWN MED DRAWER 7, Y5N ONE ×3 (08:09→17:03)
[2018-10-01] MEDS: ESCITALOPRAM OXALATE 10 MG TABLET (FP) PO SCH (09:01)
[2018-10-01] MEDS: PANTOPRAZOLE 40 MG TABLET (FP) PO SCH (09:01)
[2018-10-01] MEDS: ASPIRIN 81 MG CHEWABLE TABLETS PO SCH (09:01)
[2018-10-01] MEDS: CLOPIDOGREL BISULFATE 75 MG TABLET (FP) PO SCH (09:01)
[2018-10-01] MEDS: RAMIPRIL 2.5 MG CAPSULE (FP) PO SCH (09:01)
--- NOTE | 2018-10-01 09:05 | PN ---
Progress Note (short form) - Note Progress Note: Chief Complaint: Events noted, notes reviewed, denies any chest pain or dyspnea , anxious to be D/C History of Present Illness: Seen and examined on telemetry. Events noted, notes reviewed, denies any chest pain or dyspnea, anxious to be D/C - Current Medication List Current Medications: Current Medications Aspirin (Asa -) 81 mg PO DAILY [facility] Last Admin: 09/30/18 10:46 Dose: 81 mg Carbidopa/Levodopa (Sinemet *Cr* -) 1 combo PO TIDCM [facility] Last Admin: 09/30/18 16:56 Dose: 1 combo Clopidogrel Bisulfate (Plavix -) 75 mg PO DAILY [facility] Last Admin: 09/30/18 10:46 Dose: 75 mg Escitalopram Oxalate (Lexapro -) 5 mg PO DAILY [facility] Last Admin: 09/30/18 10:30 Dose: 5 mg Sodium Chloride (Normal Saline -) 250 mls @ 250 mls/hr IV ASDIR [facility] Last Admin: 09/30/18 14:00 Dose: 250 mls/hr Metformin HCl (Glucophage Xr -) 500 mg PO [facility] Last Admin: 09/30/18 21:01 Dose: 500 mg Pantoprazole Sodium (Protonix -) 40 mg PO DAILY [facility] Last Admin: 09/30/18 10:30 Dose: 40 mg Ramipril (Altace -) 2.5 mg PO DAILY [facility] Last Admin: 09/30/18 10:30 Dose: 2.5 mg Rosuvastatin Calcium (Crestor -) 20 mg PO [facility] Last Admin: 09/30/18 21:01 Dose: 20 mg Review of Systems Cardiovascular: As noted above Respiratory: denies: As noted above Gastrointestinal: denies: Nausea, Vomiting, Diarrhea, Constipation or Abdominal Discomfort Musculoskeletal: No Symptoms Reported Endocrine: No Symptoms Reported - Objective Vital Signs: Last Vital Signs Temp Pulse Resp BP Pulse Ox 97.3 F L 49 L 18 111/73 95 10/01/18 06:00 10/01/18 06:00 10/01/18 06:00 10/01/18 06:00 09/30/18 21:00 Intake & Output 09/28/18 09/29/18 09/30/18 10/01/18 23:59 23:59 23:59 23:59 Intake Total 150 540 970 0 Output Total 200 300 400 Balance -50 240 970 -400 Constitutional: No Distress, Calm, Thin Neck: Supple Negative JVD Cardiovascular: S1 S2 Regular Rate and Rhythm Respiratory: Clear to A&P Bilaterally Gastrointestinal: Soft Benign Normal Bowel Sounds Ext: No Edema Labs: CBC, BMP 09/29/18 06:00 09/29/18 06:00 Hepatic Panel Total Bilirubin 0.8 mg/dL (0.2-1) 09/29/18 06:00 AST 18 U/L (15-37) 09/29/18 06:00 ALT 10 U/L (13-61) L 09/29/18 06:00 Alkaline Phosphatase 59 U/L (45-117) 09/29/18 06:00 Albumin 3.5 g/dl (3.4-5.0) 09/29/18 06:00 Assessment/Plan ASSESSMENT: 1. Post mechanical fall, gait instability 2. Parkinson's disease 3. HTN/Hypertensive heart disease 4. DM 5. Hyperlipidemia 6. Cerebrovascular disease PLAN: 1. Continue ASA and Plavix 2. Continue Altace 3. Continue Crestor 4. D/C as per the primary team Dianne Worley MD
--- NOTE | 2018-10-01 11:10 | PN ---
Progress Note (short form) - Note Progress Note: NEUROLOGY PROGRESS: Events reviewed and discussed with staff. Extensive telephone discussion with daughter, Tabitha, this morning. Pt reporting he would like to return to [facility], but family agrees that short-term rehab for gait training with walker is necessary. Reports tolerating L-Dopa without hallucinations at this time, however has reported them previously seeing "animals" or his son. Does report occasional dysphasia. Sleeping well, but recurrent awakenings attributed to urinary frequency. EXAM: Awake, alert. [facility]. Feb. "2018. [place] Sl dysarthric Reduced rapid tongue. Gag OK. + grasps Decreased cogwheeling. Decreased JAMES's Areflexic in legs Gait remains improved with better stride length and reduced retropulsion. IMP: OMS (multiple CVA's +/- AD) Parkinsonism- slightly better on low dose L-Dopa. Diabetic peripheral neuropathy SUGGEST: Continue Sinemet CR 25/100 TID @ 7, 12, and 5, monitor for return of hallucinations Plan mealtimes 8, 1, and 6 at peak of L-Dopa effect. Assist with feeds. Out patient PT for gait with walker. Neuro f/u as out patient. Thank you very much, Tien Gibson MD
--- NOTE | 2018-10-01 11:54 | DS ---
Physical Examination Vital Signs: Vital Signs Temperature 97.6 F 10/01/18 10:00 Pulse Rate 42 L 10/01/18 10:00 Respiratory Rate 18 10/01/18 10:00 Blood Pressure 126/56 L 10/01/18 10:00 O2 Sat by Pulse Oximetry (%) 95 09/30/18 21:00 Constitutional: Yes: No Distress HENT: Yes: Atraumatic Neck: Yes: Supple Cardiovascular: Yes: Regular Rate and Rhythm Respiratory: Yes: CTA Bilaterally Gastrointestinal: Yes: Normal Bowel Sounds Extremities: Yes: WNL Edema: No Peripheral Pulses WNL: Yes Neurological: Yes: Alert, Oriented Labs: CBC, BMP 09/29/18 06:00 09/29/18 06:00 Discharge Summary Reason For Visit: SYNCOPE Current Active Problems Accident due to mechanical fall without injury (Acute) Cerebrovascular disease (Acute) Gait instability (Acute) Hyperlipidemia (Acute) Hypertensive heart disease (Acute) Parkinsonian features (Acute) Syncope (Acute) Type 2 diabetes mellitus (Acute) - Instructions Referrals: Tien Gibson MD [Staff Physician] - Andrea Wu [Primary Care Provider] - - Home Medications Comprehensive Discharge Medication List: Ambulatory Orders Aspirin 81 mg PO DAILY 09/25/18 Escitalopram Oxalate [Lexapro -] 5 mg PO DAILY 09/25/18 Pantoprazole Sodium [Protonix] 40 mg PO DAILY 09/25/18 Ramipril [Altace] 2.5 mg PO DAILY 09/25/18 Rosuvastatin Calcium [Crestor] 20 mg PO DAILY 09/25/18 metFORMIN XR [Glucophage *Xr* -] 500 mg PO HS 09/25/18 Carbidopa/Levodopa *Cr* 25/100 [Sinemet *Cr* 25/100 -] 1 combo PO TIDCM #90 tablet.er 09/29/18 Clopidogrel Bisulfate [Plavix -] 75 mg PO DAILY #30 tablet 09/30/18 de snf
[2018-10-01] MEDS: SODIUM CHLORIDE 250 ML IV SCH (14:00)
--- NOTE | 2018-10-01 17:14 | PN ---
Progress Note, Physician - Current Medication List Current Medications: Active Medications Aspirin (Asa -) 81 mg PO DAILY [facility] Last Admin: 10/01/18 09:01 Dose: 81 mg Carbidopa/Levodopa (Sinemet *Cr* 25/100 -) 1 combo PO TIDCM [facility] Last Admin: 10/01/18 12:04 Dose: 1 combo Clopidogrel Bisulfate (Plavix -) 75 mg PO DAILY [facility] Last Admin: 10/01/18 09:01 Dose: 75 mg Escitalopram Oxalate (Lexapro -) 5 mg PO DAILY [facility] Last Admin: 10/01/18 09:01 Dose: 5 mg Sodium Chloride (Normal Saline -) 250 mls @ 250 mls/hr IV ASDIR [facility] Last Admin: 09/30/18 14:00 Dose: 250 mls/hr Metformin HCl (Glucophage Xr -) 500 mg PO HS [facility] Last Admin: 09/30/18 21:01 Dose: 500 mg Pantoprazole Sodium (Protonix -) 40 mg PO DAILY [facility] Last Admin: 10/01/18 09:01 Dose: 40 mg Ramipril (Altace -) 2.5 mg PO DAILY [facility] Last Admin: 10/01/18 09:01 Dose: 2.5 mg Rosuvastatin Calcium (Crestor -) 20 mg PO [facility] Last Admin: 09/30/18 21:01 Dose: 20 mg - Objective Vital Signs: Vital Signs Temperature 98.5 F 10/01/18 14:00 Pulse Rate 42 L 10/01/18 14:00 Respiratory Rate 18 10/01/18 10:00 Blood Pressure 123/57 L 10/01/18 14:00 O2 Sat by Pulse Oximetry (%) 96 10/01/18 09:00 Labs: CBC, BMP 09/29/18 06:00 09/29/18 06:00 Problem List - Problems (1) Syncope Code(s): R55 - SYNCOPE AND COLLAPSE (2) Hyperlipidemia Code(s): E78.5 - HYPERLIPIDEMIA, UNSPECIFIED Qualifiers: Hyperlipidemia type: pure hypercholesterolemia Qualified Code(s): E78.00 - Pure hypercholesterolemia, unspecified; E78.0 - Pure hypercholesterolemia (3) Type 2 diabetes mellitus Code(s): E11.9 - TYPE 2 DIABETES MELLITUS WITHOUT COMPLICATIONS Qualifiers: Diabetes mellitus fdc insulin use: without fdc use Diabetes mellitus complication status: with neurologic complications Diabetes mellitus complication detail: with unspecified neuropathy Qualified Code(s): E11.40 - Type 2 diabetes mellitus with diabetic neuropathy, unspecified (4) Parkinsonian features Code(s): R25.9 - UNSPECIFIED ABNORMAL INVOLUNTARY MOVEMENTS
[2018-10-01 18:38] VITALS: BP 103/56; PULSE 53; TEMP 97.2
== END 2018-10-01 18:45 | disposition home or self-care (01) | DRG 57 ==
LOC: JER 14:43 → JERBED 19:05 → UNDOADMOB 19:05 → INTOOBSV 19:05 → JERBED 09-26 01:11 → J4S 09-26 10:44 → OBSVTOIN 09-28 18:43
PROVIDERS: ADMIT Internal Medicine; ATTEND Internal Medicine
DX: G20 Parkinson's disease (principal); R55 Syncope and collapse; E78.5 Hyperlipidemia, unspecified; E11.40 Type 2 diabetes mellitus with diabetic neuropathy, unspecified; I11.9 Hypertensive heart disease without heart failure; R26.81 Unsteadiness on feet
CPT/HCPCS: 36415; 70450-TC; 70551-TC; 71045-TC-FY; 80053; 80061; 81003; 82550; 82553; 82607; 82962; 83036; 83540; 83550; 83721; 84443; 84484; 85025; 86593; 93005; 93010; 93306-TC; 93880-TC; 97116-GP; 99285-25; G0378; J7030